=== PATIENT | female | born 1965 | race African-American/Black ===

== ENCOUNTER 2022-03-25 08:42 | Inpatient (IN) | payer MEDICARE, MEDICAID ==
[~2022-03-25] VITALS: Ht 167.6 cm; Wt 196.4 kg
[2022-03-25 11:56] LABS: BASOPHILS % 0.7 % (0.0-2.0); EOSINOPHILS % 2.5 % (0.0-5.0); HEMATOCRIT. 39.8 % (36.0-48.0); HEMOGLOBIN. 13.6 g/dL (12.0-16.0); MEAN CORPUSCULAR VOLUME 93.7 fL (81.0-99.0); MEAN PLATELET VOLUME 7.8 fl (7.4-10.4); MONOCYTES % 8.5 % (2.0-8.0); NEUTROPHILS % 68.3 % (40.0-76.0); PLATELET 259 x1000/uL (130-400); RED BLOOD CELL COUNT 4.24 mill/uL (4.2-5.4); RED CELL DISTRIBUTION WIDTH 16.7 % (11.6-14.6)
[2022-03-25 12:06] LABS: CHLORIDE 102 mEq/L (98-107)
[2022-03-25 14:24] LABS: INR 1.1; PROTHROMBIN TIME 11.3 sec (9.6-11.0)
[2022-03-25] MEDS ORDERED: IPRATROPIUM/ALBUTEROL 0.5-3(2.5)MG/3ML NEB HHN PRN (15:30)
[2022-03-25] MEDS ORDERED: DOCUSATE SODIUM 100MG CAPSULE PO PRN (15:30)
[2022-03-25] MEDS ORDERED: ACETAMINOPHEN 325MG TABLET PO PRN ×2 (15:30)
[2022-03-25] MEDS ORDERED: CLONIDINE 0.1MG TABLET PO PRN (15:30)
[2022-03-25] MEDS ORDERED: LORAZEPAM 0.5MG TABLET PO PRN (15:30)
[2022-03-25] MEDS ORDERED: ONDANSETRON HCL 4MG/2ML INJ IV PRN (15:30)
[2022-03-25 16:55] LABS: T4 FREE 0.89 ng/dL (0.76-1.46)
[2022-03-25 17:21] VITALS: BP 143/94
[2022-03-25 18:00] VITALS: BP 143/94
[2022-03-25] MEDS ORDERED: CALC-1139 PO (19:25)
[2022-03-25] MEDS ORDERED: ATEN-42 MT (19:25)
[2022-03-25] MEDS ORDERED: LEVO100T9 MT (19:25)
[2022-03-25] MEDS ORDERED: TOPUD PO (19:25)
[2022-03-25] MEDS ORDERED: VITAMIN D PO (19:25)
[2022-03-25] MEDS ORDERED: ALBU6.7H9 INH (19:25)
[2022-03-25 20:00] VITALS: BP 103/53
[2022-03-25] MEDS ORDERED: *PATIENT'S OWN MEDICATION STORAGE XX SCH (21:45)
[2022-03-26] VITALS: BP 115/52
[2022-03-26 04:00] VITALS: BP 110/43
[2022-03-26] MEDS ORDERED: REGADENOSON 0.4 MG/5 ML IV ONE (06:30)
[2022-03-26 06:37] LABS: BASOPHILS % 0.5 % (0.0-2.0); HEMATOCRIT. 33.5 % (36.0-48.0); HEMOGLOBIN. 11.2 g/dL (12.0-16.0); LYMPHOCYTES % 19.1 % (20.0-50.0); MEAN CORPUSCULAR HEMOGLOBIN 31.5 pg (28.0-32.0); MEAN CORPUSCULAR VOLUME 94.1 fL (81.0-99.0); MEAN PLATELET VOLUME 7.4 fl (7.4-10.4); MONOCYTES % 10.5 % (2.0-8.0); NEUTROPHILS % 66.9 % (40.0-76.0); PLATELET 203 x1000/uL (130-400); RED BLOOD CELL COUNT 3.56 mill/uL (4.2-5.4); RED CELL DISTRIBUTION WIDTH 16.6 % (11.6-14.6)
[2022-03-26 07:20] LABS: CHLORIDE 105 mEq/L (98-107)
[2022-03-26 08:00] VITALS: BP 122/71
[2022-03-26] MEDS: AMLODIPINE 2.5MG TABLET PO SCH ×2 (09:46→21:00)
[2022-03-26] MEDS: ASPIRIN 81MG EC TABLET PO SCH (09:46)
[2022-03-26 12:00] VITALS: BP 106/61
[2022-03-26 16:00] VITALS: BP 134/59
[2022-03-26] MEDS: HYDROCODONE/ACETAMINOPHEN 5/325MG TABLET PO PRN (16:57)
[2022-03-26 20:00] VITALS: BP 100/52
[2022-03-27] VITALS: BP 102/59
[2022-03-27] MEDS: HYDROCODONE/ACETAMINOPHEN 5/325MG TABLET PO PRN (00:35)
[2022-03-27 04:00] VITALS: BP 95/44
[2022-03-27 06:58] LABS: BASOPHILS % 0.6 % (0.0-2.0); EOSINOPHILS % 4.1 % (0.0-5.0); HEMATOCRIT. 32.7 % (36.0-48.0); LYMPHOCYTES % 26.7 % (20.0-50.0); MEAN CORPUSCULAR HEMOGLOBIN 31.7 pg (28.0-32.0); MEAN PLATELET VOLUME 7.8 fl (7.4-10.4); MONOCYTES % 11.3 % (2.0-8.0); NEUTROPHILS % 57.3 % (40.0-76.0); PLATELET 207 x1000/uL (130-400); RED BLOOD CELL COUNT 3.48 mill/uL (4.2-5.4); RED CELL DISTRIBUTION WIDTH 16.7 % (11.6-14.6)
[2022-03-27 07:21] LABS: CHLORIDE 105 mEq/L (98-107)
[2022-03-27] MEDS: AMLODIPINE 2.5MG TABLET PO SCH (09:00)
[2022-03-27] MEDS: ASPIRIN 81MG EC TABLET PO SCH (09:58)
[2022-03-27 12:00] VITALS: BP 105/37
[2022-03-27] MEDS ORDERED: ASPI-1406 PO (12:09)
[2022-03-27] MEDS ORDERED: AMLO5TAB88 MT (12:09)
[2022-03-27 16:00] VITALS: BP 141/67
[2022-03-27 16:10] VITALS: BP 105/37
== END 2022-03-27 17:45 | disposition home health service (06) | DRG 206 ==
LOC: ER 09:05 → EDBEDREQ 13:13 → 7WST 14:32 → EDBEDREQ 14:36 → ENRESERV 15:14 → 7WST 16:46
PROVIDERS: ADMIT Internal Medicine; ATTEND Internal Medicine
DX: M94.0 Chondrocostal junction syndrome [Tietze] (principal); Z68.45 Body mass index [BMI] 70 or greater, adult; Z20.822 Contact with and (suspected) exposure to COVID-19; I11.9 Hypertensive heart disease without heart failure; E66.09 Other obesity due to excess calories; E03.9 Hypothyroidism, unspecified; I25.2 Old myocardial infarction; Z82.3 Family history of stroke; Z79.82 Long term (current) use of aspirin
CPT/HCPCS: 36415; 71045; 80048; 80053; 80061; 83036; 83880; 84439; 84443; 84481; 84484; 85025; 87426; 93005; 93306; 99285